=== PATIENT | male | born 2000 | race Caucasian/White ===

== ENCOUNTER 2019-08-12 21:37 | Emergency (ER) | payer BC, MEDICAID ==
[~2019-08-12] VITALS: Ht 177.8 cm; Wt 74.1 kg
[2019-08-12 21:39] VITALS: BP 105/55
--- NOTE | 2019-08-12 22:06 | NUR ---
CALLED FOR ROOM, NO ANSWER
--- NOTE | 2019-08-12 22:52 | NUR ---
NO ANSWER WHEN CALLED FOR ROOM
--- NOTE | 2019-08-12 23:26 | NUR ---
PT TO ROOM AT THIS TIME.
--- NOTE | 2019-08-12 23:34 | NUR ---
PT AMB TO BR WITH STEADY GAIT AT THIS TIME.
[2019-08-13 00:15] LABS: CULTURE INDICATED? YES; MICROSCOPIC INDICATED
[2019-08-13] MEDS ORDERED: CEFTRIAXONE 250 MG ONE (00:20)
[2019-08-13] MEDS ORDERED: AZITHROMYCIN 250 MG TABLET ONE (00:20)
[2019-08-13] MEDS ORDERED: AZITHROMYCIN 500 MG TABLET PO ONE (00:30)
[2019-08-13] MEDS ORDERED: CEFTRIAXONE 250 MG IM ONE (00:30)
--- NOTE | 2019-08-13 00:32 | NUR ---
PT MEDICATED PER EMAR. PT TOLERATED WELL.
--- NOTE | 2019-08-13 00:33 | NUR ---
Patient given discharge instructions and they have confirmed that they understand the instructions. Patient ambulatory with steady gait.
== END 2019-08-13 00:34 | disposition home or self-care (01) ==
LOC: ED 22:00
DX: N34.1 Nonspecific urethritis (principal); R30.0 Dysuria; J45.909 Unspecified asthma, uncomplicated; F17.200 Nicotine dependence, unspecified, uncomplicated; Z90.89 Acquired absence of other organs
CPT/HCPCS: 81001; 87086; 87491; 87591; 96372; 99283; J0696; 87077